=== PATIENT | male | born 1965 | race Caucasian/White ===

== ENCOUNTER 2019-03-27 01:23 | Emergency (ER) | payer BC ==
--- NOTE | 2019-03-27 01:40 | EDM.PDOC ---
ED HPI GENERAL MEDICAL PROBLEM - General Chief Complaint: Abdominal Pain Stated Complaint: abdominal pain Time Seen by Provider: 03/27/19 01:35 - History of Present Illness INITIAL COMMENTS - FREE TEXT/NARRATIVE: 53-year-old male presents emergency room with upper abdominal pain. This started around 11:00 this evening the patient is uncomfortable enough is not able to get any rest. Patient does not have history of gallbladder disease or ulcerative or other stomach problems. The patient was shoveling snow early this morning but seemed to do okay with that and then this evening this discomfort starts. Patient had pork chops with mushroom gravy and rice and vegetables for supper. He's not had any nausea vomiting no diarrhea no constipation and he's not aware of any fevers or chills. Epigastric Pain Score (Numeric/FACES): 6 - Related Data Allergies Allergy/AdvReac Type Severity Reaction Status Date / Time No Known Allergies Allergy Verified 03/27/19 01:31 Home Meds: Home Meds Bp Med. 03/27/19 [History] Pantoprazole Sodium 40 mg PO Q24H #30 tablet. 03/27/19 [Rx] Sucralfate [Carafate] 1 gm PO QIDACANDBED #24 tablet 03/27/19 [Rx] Past Medical History HEENT History: Reports: Other (See Below) Other HEENT History: Bilateral tinnitus, left labyrinthine unilater reactive loss Cardiovascular History: Reports: None Respiratory History: Reports: None Gastrointestinal History: Reports: None Genitourinary History: Reports: None Musculoskeletal History: Reports: Osteoarthritis Other Musculoskeletal History: LTKA Neurological History: Reports: Vertigo Psychiatric History: Other Psychiatric History: Seasonal depression Endocrine/Metabolic History: Reports: None Hematologic History: Reports: None Immunologic History: Reports: None Oncologic (Cancer) History: Reports: None Dermatologic History: Reports: None - Past Surgical History Head Surgeries/Procedures: Reports: None HEENT Surgical History: Reports: None Cardiovascular Surgical History: Reports: None Respiratory Surgical History: Reports: None GI Surgical History: Reports: Appendectomy Male Surgical History: Reports: None Endocrine Surgical History: Reports: None Neurological Surgical History: Reports: None Musculoskeletal Surgical History: Reports: None Oncologic Surgical History: Reports: None Dermatological Surgical History: Reports: None Social & Family History - Family History Family Medical History: Noncontributory - Caffeine Use Caffeine Use: Reports: Coffee ED ROS GENERAL - Review of Systems Review Of Systems: See Below Constitutional: Reports: No Symptoms HEENT: Reports: No Symptoms Respiratory: Reports: No Symptoms Cardiovascular: Reports: No Symptoms Endocrine: Reports: No Symptoms GI/Abdominal: Reports: Abdominal Pain. Denies: Constipation, Diarrhea, Nausea, Vomiting : Reports: No Symptoms Musculoskeletal: Reports: No Symptoms Skin: Reports: No Symptoms Neurological: Reports: No Symptoms ED EXAM, GI/ABD - Physical Exam Exam: See Below Exam Limited By: No Limitations General Appearance: Alert, No Apparent Distress Head: Atraumatic, Normocephalic Neck: Normal Inspection, Supple, Non-Tender, Full Range of Motion. No: Lymphadenopathy (L), Lymphadenopathy (R) Respiratory/Chest: No Respiratory Distress, Lungs Clear, Normal Breath Sounds Cardiovascular: Regular Rate, Rhythm, No Edema, No Murmur GI/Abdominal Exam: Normal Bowel Sounds, Soft, Other (Some epigastric discomfort extending into the left upper abdomen) Back Exam: Normal Inspection. No: CVA Tenderness (L), CVA Tenderness (R) Extremities: Normal Inspection, Normal Range of Motion, Non-Tender Neurological: Alert, Oriented, Normal Cognition Psychiatric: Normal Affect, Normal Mood Skin Exam: Warm, Dry, Intact, Normal Color Lymphatic: No Adenopathy Course - Vital Signs Last Recorded V/S: Last Vital Signs Temp 36.9 C 03/27/19 01:32 Pulse 66 03/27/19 01:32 Resp 16 03/27/19 01:32 BP 144/82 H 03/27/19 01:32 Pulse Ox 100 03/27/19 01:32 - Orders/Labs/Meds Orders: Active Orders 24 hr Category Date Time Status EKG Documentation Completion [RC] STAT Care 03/27/19 01:47 Active Pantoprazole [ProTONIX] Med 03/27/19 09:00 Ordered 40 mg PO DAILY Medication Orders Pantoprazole Sodium (Protonix) 40 mg PO DAILY BREANNE Labs: Laboratory Tests 03/27/19 03/27/19 03/27/19 Range/Units 02:03 02:03 02:03 WBC 7.89 (4.23-9.07) K/mm3 RBC 5.00 (4.63-6.08) M/mm3 Hgb 14.2 (13.7-17.5) gm/dl Hct 41.0 (40.1-51.0) % MCV 82.0 D (79.0-92.2) fl MCH 28.4 (25.7-32.2) pg MCHC 34.6 (32.2-35.5) g/dl RDW Std Deviation 43.8 (35.1-43.9) fL Plt Count 258 (163-337) K/mm3 MPV 10.0 (9.4-12.3) fl Neutrophils % (Manual) 61 H (40-60) % Band Neutrophils % 2 (0-10) % Lymphocytes % (Manual) 23 (20-40) % Atypical Lymphs % 0 % Monocytes % (Manual) 10 (2-10) % Eosinophils % (Manual) 1 (0.8-7.0) % Basophils % (Manual) 3 H (0.2-1.2) Platelet Estimate Adequate Plt Morphology Comment Normal RBC Morph Comment Normal PT 11.1 (9.7-12.0) SECONDS INR 1.02 APTT 27 (22-31) SECONDS Sodium 141 (136-145) mEq/L Potassium 3.6 (3.5-5.1) mEq/L Chloride 103 (98-107) mEq/L Carbon Dioxide 30 (21-32) mEq/L Anion Gap 11.6 (5-15) BUN 16 (7-18) mg/dL Creatinine 1.2 (0.7-1.3) mg/dL Est Cr Clr Drug Dosing 77.24 mL/min Estimated GFR (MDRD) > 60 (>60) mL/min BUN/Creatinine Ratio 13.3 L (14-18) Glucose 131 H (74-106) mg/dL Calcium 8.7 (8.5-10.1) mg/dL Total Bilirubin 0.6 (0.2-1.0) mg/dL AST 35 (15-37) U/L ALT 39 (16-63) U/L Alkaline Phosphatase 79 (46-116) U/L Troponin I < 0.017 (0.00-0.056) ng/mL Total Protein 7.0 (6.4-8.2) g/dl Albumin 3.8 (3.4-5.0) g/dl Globulin 3.2 gm/dL Albumin/Globulin Ratio 1.2 (1-2) Lipase 205 (73-393) U/L Meds: Medications Generic Name Dose Route Start Last Admin Trade Name Izabel PRN Reason Stop Dose Admin Pantoprazole Sodium 40 mg 03/27/19 09:00 Protonix PO DAILY BREANNE Discontinued Medications Generic Name Dose Route Start Last Admin Trade Name Izabel PRN Reason Stop Dose Admin Al Hydroxide/Mg Hydroxide 30 0 ml 03/27/19 02:01 03/27/19 02:07 ml/ Lidocaine HCl 15 ml PO 03/27/19 02:02 45 ml ONETIME ONE Administration Sucralfate 1 gm 03/27/19 03:35 03/27/19 03:39 Carafate PO 03/27/19 03:36 1 gm ONETIME ONE Administration - Re-Assessments/Exams Free Text/Narrative Re-Assessment/Exam: 03/27/19 03:49 Patient received a GI cocktail this helped significantly with this discomfort didn't completely knocked out but he was doing much better after this. Since followed up with some Carafate and he will take a Protonix when he gets home. An EKG was done which was nondiagnostic essentially normal with his routine labs that looked pretty good troponin was done that was also normal. Departure - Departure Time of Disposition: 03:43 Disposition: Left Without Being Seen 07 Clinical Impression: Upper abdominal pain - Discharge Information Prescriptions: Pantoprazole Sodium 40 mg PO Q24H #30 tablet.dr Hannaralfate [Carafate] 1 gm PO QIDACANDBED #24 tablet Referrals: Kike Stephenson MD [Primary Care Provider] - Forms: ED Department Discharge Additional Instructions: Return to the emergency room with any questions problems or worsening symptoms. Take the medications as directed. Follow-up with your regular physician a couple of days after you have the ultrasound. - My Orders Last 24 Hours: My Active Orders 03/27/19 01:47 EKG Documentation Completion [RC] STAT 03/27/19 09:00 Pantoprazole [ProTONIX] 40 mg PO DAILY - Assessment/Plan Last 24 Hours: My Active Orders 03/27/19 01:47 EKG Documentation Completion [RC] STAT 03/27/19 09:00 Pantoprazole [ProTONIX] 40 mg PO DAILY
[2019-03-27] MEDS ORDERED: Alum Hydrox/Mag Hydrox/Simeth 30 ML, Lidocaine 2% 15 ML PO ONE ×2 (02:01)
[2019-03-27] MEDS ORDERED: Sucralfate Suspension 1 GM/10 ML Cup PO ONE (03:35)
[2019-03-27] MEDS ORDERED: Pantoprazole 40 MG Tab.CR PO ONE (04:01)
[2019-03-27] MEDS ORDERED: Pantoprazole 40 MG Tab.CR PO SCH (09:00)
== END 2019-03-27 04:12 | disposition home or self-care (01) ==
LOC: JD.ED 01:23 → SUPCPDRO 01:23 → JD.ED 04:12
DX: R10.13 Epigastric pain (principal); R10.12 Left upper quadrant pain; Z87.19 Personal history of other diseases of the digestive system
CPT/HCPCS: 36415; 80053; 83690; 84484; 85007; 85027; 85610; 85730; 93005; 99284; A9270; 93010; 99283